=== PATIENT | male | born 1975 | race Caucasian/White ===

== ENCOUNTER → 2017-01-25 | Outpatient (CLI) | payer BC, OTHER ==
[2017-01-25 11:59] LABS: ALBUMIN 3.8 GM/DL (3.2-5.2); ALBUMIN/GLOBULIN RATIO 1.19 (1.00-1.93); ALKALINE PHOSPHATASE 90 U/L (45-117); ALT/SGPT 49 U/L (12-78); ANION GAP 9 MEQ/L (8-16); AST/SGOT 20 U/L (15-37); BILIRUBIN,TOTAL 0.3 MG/DL (0.2-1.0); BLOOD UREA NITROGEN 15 MG/DL (7-18); CALCIUM LEVEL 8.7 MG/DL (8.5-10.1); CARBON DIOXIDE LEVEL 28 MEQ/L (21-32); CHLORIDE LEVEL 108 MEQ/L (98-107); CHOLESTEROL LEVEL 187 MG/DL (<200); CREATININE FOR GFR 0.85 MG/DL (0.70-1.30); GLOMERULAR FILTRATION RATE > 60.0 (>60); GLUCOSE, FASTING 99 MG/DL (70-105); POTASSIUM SERUM 4.2 MEQ/L (3.5-5.1); SODIUM LEVEL 145 MEQ/L (136-145); TRIGLYCERIDES LEVEL 248 MG/DL (<150)
== END ==
LOC: M LRY 07:28
PROVIDERS: ATTEND Nurse Practitioner Family
DX: Z13.220 Encounter for screening for lipoid disorders (principal); I10 Essential (primary) hypertension

== ENCOUNTER → 2017-08-28 | Outpatient (CLI) | payer BC, OTHER ==
[2017-08-28 18:57] LABS: ALBUMIN 3.9 GM/DL (3.2-5.2); ALBUMIN/GLOBULIN RATIO 1.22 (1.00-1.93); ALKALINE PHOSPHATASE 100 U/L (45-117); ALT/SGPT 50 U/L (12-78); ANION GAP 5 MEQ/L (8-16); AST/SGOT 22 U/L (7-37); BILIRUBIN,TOTAL 0.2 MG/DL (0.2-1.0); BLOOD UREA NITROGEN 14 MG/DL (7-18); CALCIUM LEVEL 8.2 MG/DL (8.5-10.1); CARBON DIOXIDE LEVEL 29 MEQ/L (21-32); CHLORIDE LEVEL 111 MEQ/L (98-107); CREATININE FOR GFR 0.93 MG/DL (0.70-1.30); GLOMERULAR FILTRATION RATE > 60.0 (>60); GLUCOSE, FASTING 97 MG/DL (70-100); POTASSIUM SERUM 4.3 MEQ/L (3.5-5.1); SODIUM LEVEL 145 MEQ/L (136-145); TOTAL PROTEIN 7.1 GM/DL (6.4-8.2)
== END ==
LOC: M LRY 10:03
DX: I10 Essential (primary) hypertension (principal)
CPT/HCPCS: 80053

== ENCOUNTER → 2018-05-07 | Outpatient (CLI) | payer BC, OTHER | LOC: M WUC 13:23 | DX: M25.561 Pain in right knee (principal) | CPT/HCPCS: 73564 ==

== ENCOUNTER → 2018-07-24 | Outpatient (CLI) | payer BC, OTHER ==
--- NOTE | 2018-07-24 10:37 | REP ---
PA and lateral chest: Comparison is 12/29/2011. The lung moreira are clear. The cardiac size is normal. The leighton, mediastinum, and skeletal structures are unremarkable. Impression: Negative PA and lateral chest. There is no interval change. Electronically Signed by Sagar Rivas MD 07/24/2018 10:29 A
== END ==
LOC: M LRY 09:43
PROVIDERS: ATTEND Nurse Practitioner Family
DX: R06.02 Shortness of breath (principal)

== ENCOUNTER → 2018-07-24 | Outpatient (REF) | payer OTHER | LOC: M SFHCLERA 09:40 | PROVIDERS: ATTEND Nurse Practitioner Family | DX: R53.81 Other malaise (principal) ==

== ENCOUNTER → 2018-09-12 | Outpatient (CLI) | payer BC, OTHER ==
--- NOTE | 2018-09-12 12:38 | REP ---
Right calcaneus two views: Comparison is the right foot study dated 05/09/2006. There is no fracture. Subtalar joint is unremarkable. Mineralization is normal. There is a large calcification of the plantar fascia, not present previously, compatible with chronic plantar fasciitis. There are calcifications and spurring of the distal Achilles tendon. Left calcaneus two views: There are no comparisons. Mineralization is normal. There is no fracture. The subtalar joint is unremarkable. There is a large calcification in the plantar fascia compatible with chronic plantar fasciitis. There is no Achilles spur. Electronically Signed by Sagar Rivas MD 09/12/2018 12:30 P
== END ==
LOC: M LRY 11:44
PROVIDERS: ATTEND Nurse Practitioner Family
DX: M79.672 Pain in left foot (principal); M79.671 Pain in right foot

== ENCOUNTER → 2019-02-06 | Outpatient (REF) | payer OTHER ==
[2019-02-06 16:46] LABS: BLOOD UREA NITROGEN 11 MG/DL (7-18); CARBON DIOXIDE LEVEL 27 MEQ/L (21-32); CHLORIDE LEVEL 108 MEQ/L (98-107); CREATININE FOR GFR 0.92 MG/DL (0.70-1.30); GLOMERULAR FILTRATION RATE > 60.0 (>60); GLUCOSE, FASTING 91 MG/DL (70-100); SODIUM LEVEL 145 MEQ/L (136-145)
[2019-02-06 17:23] LABS: MALB URINE SIEMENS 7.7 MG/L; MAU/CREAT RATIO 4.3 MCG/MG (0.0-30.0)
[2019-02-06 17:57] LABS: CHOLESTEROL LEVEL 180 MG/DL (<200); CHOLESTEROL RISK RATIO 5.294 (<5); HDL CHOLESTEROL 34 MG/DL (>40); LDL CHOLESTEROL 98 MG/DL (<100); NON-HDL-C 146 MG/DL; TRIGLYCERIDES LEVEL 242 MG/DL (<150)
== END ==
LOC: M SFHCPLAZ 09:52
DX: I10 Essential (primary) hypertension (principal); Z83.3 Family history of diabetes mellitus

== ENCOUNTER → 2019-07-12 | Outpatient (REF) | payer OTHER | LOC: M SFHCLERA 19:08 | PROVIDERS: ATTEND Nurse Practitioner Family | DX: R53.81 Other malaise (principal) ==